=== PATIENT | female | born 1945 | race Two or more races ===

== ENCOUNTER 2023-03-12 09:04 | Emergency (ER) | payer MEDICARE, MEDICAID, SELFPAY ==
[2023-03-12 09:16] VITALS: BP 210/112; PULSE 95; RESP 18; TEMP 37; O2SAT 96; BMI 23.8
[2023-03-12 09:41] VITALS: BP 204/108; PULSE 77; RESP 18; O2SAT 100
--- NOTE | 2023-03-12 09:41 | ED.SKABFB ---
HPI - Skin/Abscess/Foreign Bdy General Chief complaint: Skin/Abscess/Foreign Body Stated complaint: hives ? Time Seen by Provider: 03/12/23 09:27 Source: patient and RN notes reviewed Mode of arrival: ambulatory Limitations: no limitations History of Present Illness HPI narrative: This is a 78-year-old female, with no known past medical history, presenting to the emergency department for itchy rash to her face chest and arms since Saturday. Patient reports that she was outside trimming her bushes when she exposed herself to poison steve accidentally. Patient reports that since Saturday night she has had itching on her face chest and bilateral arms. She has not tried taking any medications at home to treat her symptoms. Patient reports that she has a history of poison steve in the past. Patient denies any fevers, chills, headaches, blurred vision, difficulty swallowing, weakness, chest pain, shortness of breath, abdominal pain, nausea, vomiting, or diarrhea. No other complaints or concerns at this time. MD complaint: rash Onset (ago): day(s) Tetanus up to date: unsure Location: generalized Severity: moderate Quality: pruritic Pain Consistency: constant Relieving factors: none Exacerbating factors: none Context: none Associated symptoms: denies other symptoms Treatments prior to arrival: none Related Data Previous Rx's Medication Instructions Recorded diphenhydramine HCl 25 mg tablet 25 mg PO Q6-8H PRN itching #14 tabs 03/12/23 (Benadryl Allergy) labetalol 100 mg tablet 50 mg PO BID 5 days #5 tabs 03/12/23 prednisone 20 mg tablet 40 mg PO DAILY 4 days #8 tabs 03/12/23 Allergies Allergy/AdvReac Type Severity Reaction Status Date / Time No Known Allergies Allergy Unknown NONE Verified 03/12/23 09:25 Review of Systems Review of Systems: Constitutional: No Weight loss, No Fever, No Chills ENT/Mouth: No Ear Pain, No Nasal Congestion, No Sinus Pain, No Hoarseness, No sore throat, No Rhinorrhea, No Swallowing Difficulty Cardiovascular: No Chest Pain, No SOB Respiratory: No Cough, No Sputum, No Wheezing Gastrointestinal: No Nausea, No Vomiting, No Diarrhea, No Constipation, No Abdominal pain Genitourinary: No Dysuria, No Urinary Frequency, No Hematuria, No Urinary Incontinence/retention, No Urgency, No Flank Pain Musculoskeletal: No joint pain, No Myalgias, No Joint Swelling Skin: No Skin Lesions, + rash Neuro: No Weakness, No Numbness, No Paresthesias Physical Exam Vital Signs: Vital Signs: Last Vital Signs Temp 98.6 F 03/12/23 09:16 Pulse 77 03/12/23 09:41 Resp 18 03/12/23 09:41 BP 143/56 H 03/12/23 11:09 Pulse Ox 100 03/12/23 09:41 O2 Del Method Room Air 03/12/23 09:41 BMI result Body Mass Index 23.8 General: Awake, alert, and oriented X3. No acute distress. HEENT: Normal inspection, oropharynx is patent CVS: Normal heart rate and rhythm. Pulses normal. Respiratory: No respiratory distress, lungs clear to auscultation bilaterally, no wheezes, rales, or rhonchi Skin: Erythematous, mildly raised pruritic skin lesions with scattered bulla noted to her face, bilateral arms, and chest. Extremities: Normal inspection Neuro: Oriented X 3. No motor deficit. No sensory deficit. Course Reevaluation(s) Reevaluation #1: Blood pressure improved to 143/56. Patient reports that her symptoms have improved, rash appears to be less erythematous and patient appears to be much more comfortable. Discussed case with attending physician Dr. Alexandre who suggest starting patient on labetalol 50 mg twice a day given profound effect blood pressure. Advised patient that I am only giving her a short course of hypertension medication I stressed the importance of following up with the primary care physician to have this medication refilled. I informed her that having a blood pressure that elevated can lead to deadly consequences. If she is unable to be seen by primary care physician she can go to urgent care to have this refilled. Patient understands. Will treat contact dermatitis with prednisone and Benadryl. Also advised that she can use calamine lotion for symptomatic relief. Patient stable for discharge. Medications Administered Discontinued Medications Generic Name Dose Route Start Last Admin Trade Name Freq PRN Reason Stop Dose Admin Diphenhydramine HCl 50 mg 03/12/23 09:51 03/12/23 10:10 Diphenhydramine Hcl 25 Mg Capsule PO 03/12/23 09:52 50 mg ONCE ONE Administration Labetalol HCl 100 mg 03/12/23 09:57 03/12/23 10:10 Labetalol Hcl 100 Mg Tablet PO 03/12/23 09:58 100 mg ONCE ONE Administration Protocol Prednisone 60 mg 03/12/23 09:51 03/12/23 10:10 Prednisone 20 Mg Tablet PO 03/12/23 09:52 60 mg ONCE ONE Administration Medical Decision Making Medical Decision Making MDM Narrative: [id number] female presenting to the emergency department for evaluation of rash since Saturday. On arrival, patient's blood pressure 210/112. Repeat blood pressure 204/108. Patient has no reported history of hypertension however does not see a doctor, reports she has not seen a doctor in over 10 years. Patient denies any headaches, visual changes, weakness, chest pain, shortness of breath. I stressed the urgency of needing to see a primary care doctor for management of blood pressure. Patient has erythematous, pruritic rash noted to face chest and arms bilaterally. Consistent with poison steve rash. Discussed case with attending physician Dr. Alexandre. Given patient's noncompliance with seen primary care physician and her elevated blood pressure will get basic blood work, start labetalol. Plan: Benadryl 50mg and Prednisone 60mg ordered. Labetalol 100mg PO ordered. Differential Diagnosis Differential Diagnoses: The differential diagnosis associated with the presentation includes Contact dermatitis, allergic dermatitis, cellulitis Lab Data 03/12/23 10:19 03/12/23 10:19 Labs: Lab Results 03/12/23 03/12/23 03/12/23 Range/Units 10:19 10:19 10:37 WBC 7.9 (4.8-10.8) X10*3/uL RBC 4.43 (4.20-5.50) X10*6/uL Hgb 14.0 (12.0-16.0) g/dl Hct 43.1 (37.0-47.0) % MCV 97.3 (80.0-98.0) fL MCH 31.6 (27.0-33.0) pg MCHC 32.5 (31.0-35.0) g/dl RDW 13.0 (11.0-16.0) % Plt Count 260 (160-400) X10*3/uL MPV 9.1 L (9.4-12.3) fL Immature Gran % (Auto) 0.5 H (0.0-0.4) % Neut % (Auto) 71.9 (45-73) % Lymph % (Auto) 14.0 L (20-40) % [place] % (Auto) 9.3 (2-11) % Eos % (Auto) 3.9 (0-4) % Baso % (Auto) 0.4 (0-2) % Lymph # (Auto) 1.1 L (1.2-4.9) X10*3/uL [place] # (Auto) 0.7 (0.1-1.2) X10*3/uL Eos # (Auto) 0.3 (0.0-0.4) X10*3/uL Baso # (Auto) 0.0 (0.0-0.2) X10*3/uL Abs Immat Gran (auto) 0.04 H (0.00-0.03) X10*3/uL Absolute Neuts (auto) 5.7 (2.0-8.3) x10*3/uL Absolute Nucleated RBC 0.000 (0.0-0.012) X10*3/uL Nucleated RBC % (auto) 0.0 (0.0-0.2) /100WBC Sodium 139 (135-145) mmol/L Potassium 3.6 (3.3-5.1) mmol/L Chloride 104 (96-108) mmol/L Carbon Dioxide 25 (22-29) mmol/L Anion Gap 14 (12-20) BUN 13 (9-16) mg/dL Creatinine 0.73 (0.5-1.4) mg/dL Estim Creat Clear Calc 50.2 Estimated GFR > 60 Random Glucose 113 (60-115) mg/dL Calcium 9.6 (8.4-10.2) mg/dL Total Bilirubin 0.9 (0.0-1.0) mg/dL Direct Bilirubin 0.2 (0.0-0.5) mg/dL AST 27 (5-31) U/L ALT 17 (0-31) U/L Alkaline Phosphatase 80 (39-117) U/L Total Protein 7.6 (6.5-8.0) g/dL Albumin 4.2 (3.5-5.0) g/dL Urine Color Yellow Urine Appearance Clear Urine pH 6.0 (5.0-9.0) Ur Specific [place] 1.010 (1.005-1.025) Urine Protein Negative (Neg-Trace) mg/dL Urine Glucose (UA) Negative (Negative) mg/dL Urine Ketones Negative (Negative) mg/dL Urine Blood Negative (Negative) Urine Nitrite Negative (Negative) Ur Leukocyte Esterase Large (3+) H (Negative) Urine RBC 0-2 (0-2) /HPF Urine WBC >50 H (0-5) /HPF Ur Squamous Epith Cells 3-5 (0-2) /HPF Urine Bacteria 4+ (None Seen) Hyaline Casts 0-2 (0-2) /LPF Discharge Plan Discharge Clinical Impression: Contact dermatitis, Hypertension Patient Disposition: Home, Self-Care Instructions: Contact Dermatitis (ED), How to Take a Blood Pressure (ED), Hypertension (ED) Additional Instructions: Your symptoms are consistent with a poison steve rash. Please take prescribed medication as directed, start prednisone tomorrow as you already received your 1st dose today. Take Benadryl as prescribed as needed for itching, please be aware this can cause drowsiness, do not drink alcohol or drive while taking this. You also can use calamine lotion. Your blood pressure was very high today. If you do not closely monitor your blood pressure and follow-up with the primary care doctor this can have deadly consequences. I am giving you only a short course of high blood pressure medication as this is an emergency department and we were unable to follow up with you. If you do run out of this medication prior to seeing a primary care physician you may go to an urgent care where they can refill this. If any new or worsening symptoms occur including but not limited to worsening itching, chest pain, shortness of breath, difficulty breathing, difficulty swallowing, headache, blurred vision, please return for re-evaluation. Prescriptions: New labetalol 100 mg tablet 50 mg PO BID 5 Days Qty: 5 0RF prednisone 20 mg tablet 40 mg PO DAILY 4 Days Qty: 8 0RF diphenhydramine HCl [Benadryl Allergy] 25 mg tablet 25 mg PO Q6-8H PRN (Reason: itching) Qty: 14 0RF Referrals: [facility] [Physician] - Interventions: ED Discharge Assessment Last Done: 03/12/23 12:56 Discharge Date/Time: 03/12/23 12:56
--- NOTE | 2023-03-12 09:54 | ECG_ITS ---
Test Reason : hypertensive Blood Pressure : / mmHG Vent. Rate : 080 BPM Atrial Rate : 080 BPM P-R Int : 128 ms QRS Dur : 076 ms QT Int : 406 ms P-R-T Axes : 063 035 063 degrees QTc Int : 468 ms Normal sinus rhythm Normal ECG When compared with ECG of 14-OCT-2006 07:15, QT has lengthened Referred By: Marnie Khanna Electronically Signed By:GRACE CERVANTES
[2023-03-12] MEDS: Labetalol HCL 100 MG TABLET PO (10:10)
[2023-03-12] MEDS: diphenhydrAMINE HCL 25 MG CAPSULE 50 MG PO (10:10)
[2023-03-12] MEDS: predniSONE 20 MG TABLET 60 MG PO (10:10)
[2023-03-12 10:24] LABS: MANUAL DIFF FLAG NO
[2023-03-12 10:26] LABS: Basophils Percent Auto 0.4 % (0-2); Eosinophils Absolute Auto 0.3 X10*3/uL (0.0-0.4); Eosinophils Percent Auto 3.9 % (0-4); Hematocrit 43.1 % (37.0-47.0); Imm Gran Abs Auto 0.04 X10*3/uL (0.00-0.03); Imm Gran Pct Auto 0.5 % (0.0-0.4); Lymphocytes Absolute Auto 1.1 X10*3/uL (1.2-4.9); Mean Corpuscular HGB Conc 32.5 g/dl (31.0-35.0); Mean Corpuscular Hemoglobin 31.6 pg (27.0-33.0); Mean Corpuscular Volume 97.3 fL (80.0-98.0); Mean Platelet Volume 9.1 fL (9.4-12.3); Monocytes Absolute Auto 0.7 X10*3/uL (0.1-1.2); Monocytes Percent Auto 9.3 % (2-11); Neutrophils Absolute Auto 5.7 x10*3/uL (2.0-8.3); Neutrophils Percent Auto 71.9 % (45-73); Platelet Count 260 X10*3/uL (160-400); Red Blood Count 4.43 X10*6/uL (4.20-5.50); White Blood Count 7.9 X10*3/uL (4.8-10.8)
[2023-03-12 10:40] LABS: Alanine Aminotransferase 17 U/L (0-31); Albumin Level 4.2 g/dL (3.5-5.0); Alkaline Phosphatase 80 U/L (39-117); Anion Gap 14 (12-20); Aspartate Amino Transferase 27 U/L (5-31); Bilirubin Direct 0.2 mg/dL (0.0-0.5); Bilirubin Total 0.9 mg/dL (0.0-1.0); Blood Urea Nitrogen 13 mg/dL (9-16); Calcium 9.6 mg/dL (8.4-10.2); Carbon Dioxide 25 mmol/L (22-29); Chloride 104 mmol/L (96-108); Creatinine Clr Calc Pharmacy 50.2; Estimated Glomerular Filt Rate > 60; Glucose Random 113 mg/dL (60-115); Potassium 3.6 mmol/L (3.3-5.1); Sodium 139 mmol/L (135-145); Total Protein 7.6 g/dL (6.5-8.0)
[2023-03-12 10:52] LABS: Appearance Urine Clear; Color Urine Yellow; Glucose Urine UA Negative (Negative); Leukocyte Esterase Urine Large (3+) (Negative); Nitrite Urine Negative (Negative); UMIC TRIGGER UACC YES; Urine Blood Negative (Negative); Urine Ketones Negative (Negative); Urine Protein Negative (Neg-Trace)
[2023-03-12 11:09] VITALS: BP 143/56
[2023-03-12 11:36] LABS: Bacteria Urine 4+ (None Seen); Hyaline Casts Urine 0-2 /LPF (0-2); RBC Urine 0-2 /HPF (0-2); UACC Culture Trigger YES; WBC Urine >50 /HPF (0-5)
== END 2023-03-12 12:56 | disposition home or self-care (01) ==
PROVIDERS: Physician Assistant Medical; Emergency Provider Emergency Medicine
DX: L25.9 Unspecified contact dermatitis, unspecified cause (principal); I10 Essential (primary) hypertension; Z79.899 Other long term (current) drug therapy
CPT/HCPCS: 36415; 80048; 80076; 81001; 85025; 87086; 93005; 99284